=== PATIENT | female | born 1945 | race Caucasian/White ===

== ENCOUNTER 2022-10-15 15:23 | Inpatient (IN) | payer OTHER ==
[~2022-10-15] VITALS: Ht 162.6 cm; Wt 88.8 kg
[2022-10-15 16:03] LABS: Basophils # (auto) 0 10 ^3/uL (0-0.2); Basophils % (auto) 0.6 % (0.0-2.0); Eosinophils # (auto) 0.2 10 ^3/uL (0-0.8); Eosinophils % (auto) 3.5 % (0.0-7.0); Hematocrit 34.5 % (36.0-46.0); Hemoglobin 11.5 g/dL (12.2-16.2); Lymphocytes # (auto) 1.3 10 ^3/uL (0.4-5.4); Lymphocytes % (auto) 27.5 % (10.0-50.0); Mean Corpuscular Hemoglobin 28.1 pg (28.0-32.0); Mean Corpuscular Hgb Conc. 33.2 g/dL (32.0-36.0); Mean Corpuscular Volume 84.8 fL (80.0-100.0); Monocytes # (auto) 0.5 10 ^3/uL (0-1.3); Monocytes % (auto) 11.3 % (0.0-12.0); Neutrophils # (auto) 2.7 10 ^3/uL (1.6-8.6); Neutrophils % (auto) 57.1 % (37.0-80.0); Red Blood Cells 4.07 10^6/uL (4.0-5.20); Red Cell Distribution Width 14.1 % (11.8-14.3); White Blood Cell 4.8 10^3/uL (4.4-10.8)
[2022-10-15 16:24] LABS: Albumin 3.5 g/dL (3.4-5.0); BUN/Creatinine Ratio 22.5; Calcium 9.1 mg/dL (8.5-10.1); Potassium 4.2 mmol/L (3.5-5.1)
[2022-10-15 16:27] LABS: Bilirubin, Total 0.4 mg/dL (0.2-1.0); Total Protein 6.2 g/dL (6.4-8.2)
[2022-10-15] MEDS ORDERED: AZITHROMYCIN 500MG/ 250ML 250 ML IV ONE (20:45)
[2022-10-15] MEDS ORDERED: ALBUTEROL SULF 2.5 MG/0.5ML(0.5%) NEB SOLN NEB ONE (20:45)
[2022-10-15] MEDS ORDERED: DexAMETHasone SOD PHOS 10MG/1ML VIAL INJ IV ONE (20:45)
[2022-10-15] MEDS ORDERED: IPRATROPIUM BROM 0.5 MG/2.5ML INH SOL NEB ONE (20:45)
[2022-10-15] MEDS ORDERED: cefTRIAXone 1GM/50ML D5W 50 ML IV ONE (20:45)
[2022-10-15] MEDS ORDERED: NITROGLYCERIN 0.4 MG SL TAB SL PRN (21:30)
[2022-10-15] MEDS ORDERED: ONDANSETRON HCL 4 MG/2 ML VIAL IV PRN (21:30)
[2022-10-15] MEDS ORDERED: TEMAZEPAM 15 MG CAP PO PRN (21:30)
[2022-10-15] MEDS ORDERED: MORPHINE SULFATE INJ 2 MG/ml SYRG IV PRN (21:30)
[2022-10-15] MEDS: ATORVASTATIN 20 MG TAB PO SCH (22:41)
[2022-10-16 06:37] LABS: Basophils # (auto) 0 10 ^3/uL (0-0.2); Basophils % (auto) 0.3 % (0.0-2.0); Eosinophils # (auto) 0 10 ^3/uL (0-0.8); Eosinophils % (auto) 0.1 % (0.0-7.0); Hematocrit 33.9 % (36.0-46.0); Hemoglobin 11.6 g/dL (12.2-16.2); Lymphocytes # (auto) 0.8 10 ^3/uL (0.4-5.4); Lymphocytes % (auto) 20.8 % (10.0-50.0); Mean Corpuscular Hemoglobin 28.6 pg (28.0-32.0); Mean Corpuscular Hgb Conc. 34.2 g/dL (32.0-36.0); Mean Corpuscular Volume 83.8 fL (80.0-100.0); Monocytes # (auto) 0.1 10 ^3/uL (0-1.3); Monocytes % (auto) 1.8 % (0.0-12.0); Neutrophils # (auto) 3.1 10 ^3/uL (1.6-8.6); Nucleated Red Blood Cells % 0.1 %; Red Blood Cells 4.04 10^6/uL (4.0-5.20); Red Cell Distribution Width 13.9 % (11.8-14.3)
[2022-10-16] MEDS: LEVOTHYROXINE SODIUM 88 MCG TAB PO SCH (07:07)
[2022-10-16 07:28] LABS: Calcium 8.6 mg/dL (8.5-10.1); Potassium 3.8 mmol/L (3.5-5.1)
[2022-10-16 07:32] LABS: BUN/Creatinine Ratio 20.8
[2022-10-16] MEDS ORDERED: cefTRIAXone 1GM/50ML D5W 50 ML IV SCH (09:00)
[2022-10-16] MEDS ORDERED: PANTOPRAZOLE 40 MG TAB PO SCH (10:00)
[2022-10-16 10:30] VITALS: BP 140/61
[2022-10-16] MEDS: LOSARTAN POTASSIUM 50 MG TAB PO SCH (10:31)
[2022-10-16] MEDS: GABAPENTIN 300 MG CAP PO SCH (10:32)
[2022-10-16] MEDS: ENOXAPARIN SOD 40 MG/0.4 ML SYRINGE SC SCH (10:33)
[2022-10-16] MEDS ORDERED: DIVA250T4 PO (11:00)
[2022-10-16] MEDS ORDERED: ATOR40TA52 PO (11:00)
[2022-10-16] MEDS ORDERED: TIZA4TAB7 PO (11:00)
[2022-10-16] MEDS ORDERED: LEVO88TA4 PO (11:00)
[2022-10-16] MEDS ORDERED: LEVO100T8 PO (11:00)
[2022-10-16] MEDS ORDERED: FURO40TA4 PO (11:00)
[2022-10-16] MEDS ORDERED: IBUP800T26 PO (11:00)
[2022-10-16] MEDS ORDERED: ACET-6 PO (11:00)
[2022-10-16] MEDS ORDERED: LOSA-69 PO (11:00)
[2022-10-16] MEDS ORDERED: SERT50TA19 PO (11:00)
[2022-10-16] MEDS ORDERED: NALO4SPR2 (11:00)
[2022-10-16] MEDS ORDERED: ALBU108A5 PO (11:00)
[2022-10-16] MEDS ORDERED: SUMA100T15 PO (11:00)
[2022-10-16] MEDS ORDERED: POTA1TAB4 PO (11:00)
[2022-10-16] MEDS ORDERED: methylPREDNISolone SOD SUCC 40 MG/ML VL IV ONE (12:00)
[2022-10-16 13:00] VITALS: BP 126/53
[2022-10-16 17:00] VITALS: BP 131/58
[2022-10-16 20:10] VITALS: BP 130/44
[2022-10-16] MEDS: ACETAMINOPHEN 325 MG TAB PO PRN (20:45)
[2022-10-16] MEDS: ATORVASTATIN 20 MG TAB PO SCH (21:44)
[2022-10-16] MEDS: DOXYCYCLINE 100 MG TAB/CAP PO SCH (21:45)
[2022-10-16 22:00] VITALS: BP 130/44
[2022-10-17] VITALS (7 sets, daily range): BP systolic 101–146; BP diastolic 45–77
[2022-10-17] MEDS: LEVOTHYROXINE SODIUM 88 MCG TAB PO SCH (06:33)
[2022-10-17 07:11] LABS: Basophils # (auto) 0 10 ^3/uL (0-0.2); Basophils % (auto) 0.1 % (0.0-2.0); Eosinophils # (auto) 0 10 ^3/uL (0-0.8); Hemoglobin 11.7 g/dL (12.2-16.2); Lymphocytes # (auto) 1.8 10 ^3/uL (0.4-5.4); Lymphocytes % (auto) 23.7 % (10.0-50.0); Mean Corpuscular Hemoglobin 28.5 pg (28.0-32.0); Mean Corpuscular Hgb Conc. 33.5 g/dL (32.0-36.0); Mean Corpuscular Volume 85.1 fL (80.0-100.0); Monocytes # (auto) 0.8 10 ^3/uL (0-1.3); Monocytes % (auto) 10.2 % (0.0-12.0); Nucleated Red Blood Cells % 0.2 %; Red Blood Cells 4.11 10^6/uL (4.0-5.20); Red Cell Distribution Width 14.1 % (11.8-14.3); White Blood Cell 7.6 10^3/uL (4.4-10.8)
[2022-10-17 08:07] LABS: BUN/Creatinine Ratio 27.4; Calcium 8.6 mg/dL (8.5-10.1); Potassium 3.9 mmol/L (3.5-5.1)
[2022-10-17] MEDS: GABAPENTIN 300 MG CAP PO SCH (09:37)
[2022-10-17] MEDS: LOSARTAN POTASSIUM 50 MG TAB PO SCH (09:38)
[2022-10-17] MEDS: DOXYCYCLINE 100 MG TAB/CAP PO SCH ×2 (09:38→21:39)
[2022-10-17] MEDS: methylPREDNISolone SOD SUCC 40 MG/ML VL IV SCH (09:39)
[2022-10-17] MEDS: ENOXAPARIN SOD 40 MG/0.4 ML SYRINGE SC SCH (09:39)
[2022-10-17] MEDS: ACETAMINOPHEN 325 MG TAB PO PRN ×2 (09:48→21:39)
[2022-10-17] MEDS: ATORVASTATIN 20 MG TAB PO SCH (21:38)
[2022-10-17] MEDS: guaiFENesin-DM 100/10mg/5ml SYR PO PRN (21:39)
[2022-10-18 05:00] VITALS: BP 137/48
[2022-10-18] MEDS: LEVOTHYROXINE SODIUM 88 MCG TAB PO SCH (06:24)
[2022-10-18 09:00] VITALS: BP 140/70
[2022-10-18] MEDS: LOSARTAN POTASSIUM 50 MG TAB PO SCH (09:55)
[2022-10-18] MEDS: methylPREDNISolone SOD SUCC 40 MG/ML VL IV SCH (09:55)
[2022-10-18] MEDS: ENOXAPARIN SOD 40 MG/0.4 ML SYRINGE SC SCH (09:55)
[2022-10-18] MEDS: guaiFENesin-DM 100/10mg/5ml SYR PO PRN ×2 (09:55→13:57)
[2022-10-18] MEDS: DOXYCYCLINE 100 MG TAB/CAP PO SCH (09:55)
[2022-10-18] MEDS: GABAPENTIN 300 MG CAP PO SCH (09:55)
[2022-10-18] MEDS ORDERED: AMOX500T86 PO (10:35)
[2022-10-18] MEDS ORDERED: PRED20TA2 PO (10:35)
[2022-10-18 11:30] VITALS: BP 130/58
[2022-10-18 12:27] VITALS: BP 130/58
== END 2022-10-18 14:33 | disposition home or self-care (01) | DRG 189 ==
LOC: ER 15:23 → TELE 21:22 → TELE-WESTW 10-16 09:50
PROVIDERS: ADMIT Nurse Practitioner; ATTEND Internal Medicine Pulmonary Disease
DX: J96.21 Acute and chronic respiratory failure with hypoxia (principal); J44.1 Chronic obstructive pulmonary disease with (acute) exacerbation; R91.1 Solitary pulmonary nodule; I50.9 Heart failure, unspecified; I11.0 Hypertensive heart disease with heart failure; Z20.822 Contact with and (suspected) exposure to COVID-19; Z88.0 Allergy status to penicillin; Z88.2 Allergy status to sulfonamides; Z90.710 Acquired absence of both cervix and uterus
CPT/HCPCS: 36415; 71045; 71250; 80048; 80053; 84484; 85025; 85379; 87426; 93005; 94640; 96365; 96366; 96375; G0378; J1100